=== PATIENT | female | born 1965 | race African-American/Black ===

== ENCOUNTER 2021-06-10 07:29 | Emergency (ER) | payer OTHER ==
[2021-06-10 07:57] LABS: BASOPHIL 0.3 % (0-2); EOSINOPHIL 1.9 % (0-5); HCT 40.6 % (37.0-47.0); LYMPHOCYTE 39.2 % (15-48); MCH 28.1 pg (25.0-31.0); MCV 87.7 fL (78.0-100.0); MONOCYTE 7.1 % (0-12); MPV 10.1 fL (6.0-9.5); NEUTROPHIL 51.2 % (41-80); NRBC 0; PLT 249 K/uL (150-400); RBC 4.63 M/uL (4.20-5.40); WBC 6.4 K/uL (4.0-10.5)
[2021-06-10 08:04] LABS: INR 1.05 (0.9-1.2); PROTHROMBIN TIME 13.1 SECONDS (11.8-13.4)
[2021-06-10 08:20] LABS: BUN/CREAT RATIO (CALC) 14.7 RATIO; CREATININE 0.75 mg/dL (0.51-0.95); POTASSIUM 3.3 mmol/L (3.5-5.1)
[2021-06-10 08:47] LABS: CORONAVIRUS 2019 SARS-COV-2 NEGATIVE (NEGATIVE); INFLUENZA A NAA NEGATIVE (NEGATIVE)
== END 2021-06-10 11:02 | disposition home or self-care (01) ==
LOC: FER 07:29
PROVIDERS: Internal Medicine
DX: K21.9 Gastro-esophageal reflux disease without esophagitis (principal); R07.89 Other chest pain; E11.649 Type 2 diabetes mellitus with hypoglycemia without coma; I10 Essential (primary) hypertension; Z79.84 Long term (current) use of oral hypoglycemic drugs; Z20.822 Contact with and (suspected) exposure to COVID-19
CPT/HCPCS: 36415; 71045; 71275; 80048; 83690; 83880; 84145; 84484; 85025; 85610; 85730; 93005; Q9967; U0002

== ENCOUNTER 2021-07-08 07:45 | Emergency (ER) | payer OTHER ==
[2021-07-08 08:31] LABS: BASOPHIL 0.5 % (0-2); EOSINOPHIL 1.4 % (0-5); HCT 36.1 % (37.0-47.0); HGB 11.7 g/dl (12.5-16.0); MCH 28.3 pg (25.0-31.0); MCHC 32.4 g/dL (32.0-36.0); MCV 87.4 fL (78.0-100.0); MONOCYTE 6.9 % (0-12); MPV 10.1 fL (6.0-9.5); NRBC 0; PLT 218 K/uL (150-400); RBC 4.13 M/uL (4.20-5.40); RDW 13.6 % (11.5-14.0); WBC 5.9 K/uL (4.0-10.5)
[2021-07-08 08:33] LABS: BILIRUBIN NEGATIVE (NEGATIVE); BLOOD NEGATIVE Ery/uL (NEGATIVE); CLARITY CLEAR (CLEAR); COLOR YELLOW (YELLOW); GLUCOSE (U) NORMAL (NORMAL); LEUKOCYTES NEGATIVE Leu/uL (NEGATIVE); NITRITE NEGATIVE (NEGATIVE); PROTEIN NEGATIVE (NEGATIVE); UROBILINOGEN 0.2 mg/dL (0.2-1.0)
[2021-07-08 08:49] LABS: ALBUMIN 3.5 g/dL (3.4-5.0); BILIRUBIN - TOTAL 0.3 mg/dL (0.2-1.0); CREATININE 0.73 mg/dL (0.51-0.95); GLOBULIN (CALCULATION) 3.9 g/dL; POTASSIUM 3.8 mmol/L (3.5-5.1); TOTAL PROTEIN 7.4 g/dL (6.4-8.2)
[2021-07-08] MEDS ORDERED: K-TAB ER10 MEQ PO (09:05)
[2021-07-08] MEDS ORDERED: BUMEX1 MG PO ×2 (09:06→09:07)
[2021-07-08] MEDS ORDERED: AVAPRO75 MG PO (09:08)
[2021-07-08] MEDS ORDERED: LEVOFLOXACIN750 MG PO (09:08)
[2021-07-08] MEDS ORDERED: OMEPRAZOLE40 MG PO (09:09)
[2021-07-08] MEDS ORDERED: RELAFEN500 MG PO (09:10)
[2021-07-08] MEDS ORDERED: PREDNISONE 20MG20 MG PO (09:11)
[2021-07-08] MEDS ORDERED: NEURONTIN300 MG PO (09:12)
[2021-07-08] MEDS ORDERED: TIKOSYN250 MCG PO (09:12)
[2021-07-08] MEDS ORDERED: LOPRESSOR50 MG PO (09:12)
[2021-07-08] MEDS ORDERED: ELIQUIS5 MG PO (09:13)
[2021-07-08] MEDS ORDERED: STIOLTO INH (09:19)
[2021-07-08] MEDS ORDERED: ROBITUSSIN DM10 ML PO (09:20)
[2021-07-08] MEDS ORDERED: ALPHAGAN P5 M1 OP (09:28)
[2021-07-08] MEDS ORDERED: SYSTANE GEL EYE10 ML OP (09:29)
[2021-07-08] MEDS ORDERED: CARAFATE S500 MG/TSP PO (11:23)
[2021-07-08] MEDS ORDERED: NORCO 5-325 TA1 EACH PO (11:23)
== END 2021-07-08 11:52 | disposition home or self-care (01) ==
LOC: FER 07:45
PROVIDERS: Emergency Medicine
DX: R10.13 Epigastric pain (principal); Z88.6 Allergy status to analgesic agent
CPT/HCPCS: 36415; 80053; 81003; 83690; 84484; 85025; 93005; J1170; J2405; J7030; Q9967

== ENCOUNTER → 2021-08-22 | Day surgery (SDC) | payer OTHER ==
[~2021-08-22] VITALS: Ht 165.1 cm; Wt 96.4 kg
[~2021-08-22] MED LIST: ACTOS45 MG PO; ALPHAGAN P5 M1 OP; AVAPRO75 MG PO; BUMEX1 MG PO; CARAFATE S500 MG/TSP PO; ELIQUIS5 MG PO; GLYBURIDE5 MG PO; K-TAB ER10 MEQ PO; LEVOFLOXACIN750 MG PO; LISINOPRIL-HCT1 EAC2 PO; LOPRESSOR50 MG PO; NEURONTIN300 MG PO; NORCO 5-325 TA1 EACH PO; OMEPRAZOLE40 MG PO; PEPCID AC20 MG PO; PREDNISONE 20MG20 MG PO; PROTONIX 40MG T40 MG PO; RELAFEN500 MG PO; ROBITUSSIN DM10 ML PO; STIOLTO INH; SYSTANE GEL EYE10 ML OP; TIKOSYN250 MCG PO
[2021-08-22 07:19] LABS: HCG (URINE) SCREEN NEGATIVE (NEGATIVE)
== END | disposition home or self-care (01) ==
LOC: FAS 06:06
PROVIDERS: Anesthesiology
DX: K31.9 Disease of stomach and duodenum, unspecified (principal); K29.60 Other gastritis without bleeding; M62.08 Separation of muscle (nontraumatic), other site; D64.9 Anemia, unspecified; E11.9 Type 2 diabetes mellitus without complications; Z90.49 Acquired absence of other specified parts of digestive tract; Z79.82 Long term (current) use of aspirin
CPT/HCPCS: 82962; 84703; J2250; J2704; J7120